=== PATIENT | male | born 1955 | race Hispanic/Latino ===

== ENCOUNTER 2021-10-26 15:42 | Emergency (ER) | payer OTHER ==
[~2021-10-26] VITALS: Ht 167.6 cm; Wt 68.0 kg
[2021-10-26] MEDS ORDERED: ALBUTEROL 0.083% 2.5 MG/3 ML INH IH ONE (16:30)
[2021-10-26] MEDS ORDERED: BUDESONIDE 0.5 MG/2 ML INH IH ONE (16:30)
[2021-10-26] MEDS ORDERED: CEFTRIAXONE 1G VIAL IVP ONE (16:30)
[2021-10-26] MEDS ORDERED: AZITHROMYCIN 250 MG TABLET PO ONE ×2 (16:30→17:35)
[2021-10-26] MEDS ORDERED: IPRATROPIUM/ALBUTEROL SULFATE 3 ML SOLUTION IH ONE (16:30)
[2021-10-26 16:43] LABS: BASOPHILS % (AUTO) 0.4 % (0.0-5.0); EOSINOPHILS % (AUTO) 0.4 % (0.0-8.0); HEMATOCRIT 32.5 % (42-54); LYMPHOCYTES % (AUTO) 21.4 % (21.0-51.0); MEAN CORPUSCULAR HEMOGLOBIN 30.3 pg (27.0-33.0); MEAN CORPUSCULAR HGB CONC 32.3 g/dL (32.0-36.0); MEAN CORPUSCULAR VOLUME 93.7 fL (79-99); MONOCYTES % (AUTO) 7.2 % (3.0-13.0); NEUTROPHILS % (AUTO) 70.4 % (40.0-77.0); PLATELET COUNT (AUTO) 187 K/uL (130-400); RED BLOOD CELL COUNT(AUTO) 3.47 MIL/uL (4.50-6.20); RED CELL DISTRIBUTION WIDTH 16.1 % (11.0-15.5); WHITE BLOOD COUNT (AUTO) 5.1 K/uL (4.8-10.8)
[2021-10-26 17:20] LABS: CREATININE 0.6 mg/dL (0.5-1.5); POTASSIUM 3.6 mmol/L (3.5-5.1)
[2021-10-26 17:30] LABS: ALBUMIN 2.9 g/dL (3.5-5.0); BILIRUBIN,TOTAL 0.3 mg/dL (0.2-1.0); TOTAL PROTEIN, SERUM 6.8 g/dL (6.0-8.3)
[2021-10-26] MEDS ORDERED: CEFTRIAXONE 1G VIAL ONE (17:33)
[2021-10-26] MEDS ORDERED: AZITHROMYCIN 500MG+NS 250ML 250 ML ONE (17:33)
[2021-10-26] MEDS ORDERED: BUDE0.5A8 IH (17:34)
[2021-10-26 18:23] VITALS: BP 134/76
== END 2021-10-26 18:25 | disposition home or self-care (01) ==
LOC: EDH 15:42
DX: J40 Bronchitis, not specified as acute or chronic (principal); Z20.822 Contact with and (suspected) exposure to COVID-19; I10 Essential (primary) hypertension
CPT/HCPCS: 36415; 71045; 80053; 83605; 84484; 85025; 87635; 87804 ×2; 94640 ×3; 96374; 99285; C9803; J0696; J0456

== ENCOUNTER → 2022-05-28 | Outpatient (CLI) | payer OTHER ==
[~2022-05-28] MED LIST: BUDE0.5A8 IH
== END | disposition home or self-care (01) ==
LOC: RAH 08:59
PROVIDERS: ATTEND Student in an Organized Health Care Education/Training Program
DX: C73 Malignant neoplasm of thyroid gland (principal); Z93.1 Gastrostomy status
CPT/HCPCS: 74220

== ENCOUNTER → 2022-06-15 | Outpatient (CLI) | payer OTHER ==
[~2022-06-15] VITALS: Ht 167.6 cm; Wt 76.7 kg
[~2022-06-15] MED LIST changes: +HYDR-4153 PO; +LEVO100C4 PO; +OLME-7 PO; +OMEP20TA20 PO
[2022-06-15 12:27] LABS: BASOPHILS % (AUTO) 0.4 % (0.0-5.0); EOSINOPHILS % (AUTO) 0.4 % (0.0-8.0); LYMPHOCYTES % (AUTO) 22.5 % (21.0-51.0); MEAN CORPUSCULAR HEMOGLOBIN 29.9 pg (27.0-33.0); MEAN CORPUSCULAR HGB CONC 34.5 g/dL (32.0-36.0); MEAN CORPUSCULAR VOLUME 86.6 fL (79-99); MONOCYTES % (AUTO) 8.2 % (3.0-13.0); PLATELET COUNT (AUTO) 152 K/uL (130-400); RED BLOOD CELL COUNT(AUTO) 4.62 MIL/uL (4.50-6.20); RED CELL DISTRIBUTION WIDTH 13.8 % (11.0-15.5); WHITE BLOOD COUNT (AUTO) 5.5 K/uL (4.8-10.8)
[2022-06-15 12:39] VITALS: BP 149/70
[2022-06-15 12:41] LABS: INR 0.93 (0.85-1.15)
[2022-06-15 12:43] LABS: PARTIAL THROMBOPLASTIN TIME 27.9 SEC (26.3-35.5)
[2022-06-15 12:59] LABS: APPEARANCE,URINE CLEAR (CLEAR); BILIRUBIN,URINE NEGATIVE (NEGATIVE); COLOR,URINE LIGHT-YELLOW (YELLOW); GLUCOSE, URINE (UA) NEGATIVE (NEGATIVE); KETONES,URINE NEGATIVE (NEGATIVE); LEUKOCYTE ESTERASE ,URINE NEGATIVE Leu/uL (NEGATIVE); NITRATE,URINE NEGATIVE (NEGATIVE); OCCULT BLOOD,URINE NEGATIVE (NEGATIVE); PH,URINE 6.5 (5.0-8.0); PROTEIN,URINE NEGATIVE (NEGATIVE); UROBILINOGEN,URINE 0.2 mg/dL (0.2-1.0)
[2022-06-15 13:18] LABS: ALBUMIN 3.5 g/dL (3.5-5.0); CREATININE 1.1 mg/dL (0.5-1.5); POTASSIUM 3.9 mmol/L (3.5-5.1); TOTAL PROTEIN, SERUM 7.1 g/dL (6.0-8.3)
== END | disposition home or self-care (01) ==
LOC: EDSTATUS 10:00 → DAH 10:00
PROVIDERS: ATTEND Student in an Organized Health Care Education/Training Program
DX: U07.1 COVID-19 (principal); Z01.812 Encounter for preprocedural laboratory examination; C73 Malignant neoplasm of thyroid gland; Z93.1 Gastrostomy status
CPT/HCPCS: 80053; 85025; 85610; 85730; 87426; 81003; 36415; A6260

== ENCOUNTER 2022-06-22 16:28 | Inpatient (IN) | payer OTHER ==
[~2022-06-22] VITALS: Ht 162.6 cm; Wt 77.1 kg
[~2022-06-22 16:28] MED LIST changes: -BUDE0.5A8 IH
[2022-06-22] MEDS ORDERED: HYDR-4153 PO (18:15)
[2022-06-22 18:16] LABS: BASOPHILS % (AUTO) 0.4 % (0.0-5.0); EOSINOPHILS % (AUTO) 0.8 % (0.0-8.0); HEMATOCRIT 38.7 % (42-54); LYMPHOCYTES % (AUTO) 30.5 % (21.0-51.0); MEAN CORPUSCULAR HEMOGLOBIN 29.4 pg (27.0-33.0); MEAN CORPUSCULAR HGB CONC 34.4 g/dL (32.0-36.0); MEAN CORPUSCULAR VOLUME 85.6 fL (79-99); MONOCYTES % (AUTO) 5.6 % (3.0-13.0); NEUTROPHILS % (AUTO) 62.5 % (40.0-77.0); PLATELET COUNT (AUTO) 206 K/uL (130-400); RED BLOOD CELL COUNT(AUTO) 4.52 MIL/uL (4.50-6.20); RED CELL DISTRIBUTION WIDTH 13.3 % (11.0-15.5); WHITE BLOOD COUNT (AUTO) 4.8 K/uL (4.8-10.8)
[2022-06-22 18:24] LABS: POTASSIUM 3.4 mmol/L (3.5-5.1)
[2022-06-22 18:27] LABS: INR 0.94 (0.85-1.15); PROTHROMBIN TIME 10.3 SEC (9.6-11.6)
[2022-06-22 18:28] LABS: PARTIAL THROMBOPLASTIN TIME 25.9 SEC (26.3-35.5)
[2022-06-22 18:29] LABS: ALBUMIN 3.4 g/dL (3.5-5.0); TOTAL PROTEIN, SERUM 6.6 g/dL (6.0-8.3)
[2022-06-22] MEDS ORDERED: IOHEXOL 350 MG/ML 100ML INFUS..BTL IV ONE (18:52)
[2022-06-22] MEDS ORDERED: NITROGLYCERIN 0.4 MG SL TAB SL PRN (19:30)
[2022-06-22] MEDS ORDERED: DEXTROSE 50%-WATER 50 ML DISP.SYRIN IV PRN (19:30)
[2022-06-22] MEDS ORDERED: ONDANSETRON 4MG INJ IV PRN (19:30)
[2022-06-22] MEDS ORDERED: GLUCAGON 1MG KIT 1 MG ML IM PRN (19:30)
[2022-06-22] MEDS ORDERED: 0.9%NACL 1000ML 1,000 ML IV SCH (19:30)
[2022-06-22 19:45] LABS: HEMOGLOBIN A1C 5.6 % (4.0-6.0)
[2022-06-22] MEDS: INSULIN HUMULIN R 100 UNIT/ML 3ML SQ SCH (19:46)
[2022-06-22] MEDS ORDERED: POTASSIUM CHLORIDE 20 MEQ/100 ML BAG IV SCH (20:00)
[2022-06-22] MEDS: DEXTROSE 5 % AND 0.9 % NACL 1,000 ML IV SCH (20:48)
[2022-06-22] MEDS: FAMOTIDINE 20MG VIAL IV SCH (20:49)
[2022-06-22] MEDS ORDERED: HYDRALAZINE 20MG/ML VIAL IV ONE (22:00)
[2022-06-22] MEDS ORDERED: ALBUTEROL INHALER 90MCG/INH IH PRN (23:00)
[2022-06-23] MEDS: INSULIN HUMULIN R 100 UNIT/ML 3ML SQ SCH ×3 (06:00→18:00)
[2022-06-23 06:56] LABS: BASOPHILS % (AUTO) 0.4 % (0.0-5.0); EOSINOPHILS % (AUTO) 0.4 % (0.0-8.0); LYMPHOCYTES % (AUTO) 15.8 % (21.0-51.0); MEAN CORPUSCULAR HEMOGLOBIN 29.7 pg (27.0-33.0); MEAN CORPUSCULAR HGB CONC 34.3 g/dL (32.0-36.0); MEAN CORPUSCULAR VOLUME 86.4 fL (79-99); MONOCYTES % (AUTO) 8.4 % (3.0-13.0); NEUTROPHILS % (AUTO) 74.6 % (40.0-77.0); PLATELET COUNT (AUTO) 177 K/uL (130-400); RED BLOOD CELL COUNT(AUTO) 4.28 MIL/uL (4.50-6.20); RED CELL DISTRIBUTION WIDTH 13.5 % (11.0-15.5); WHITE BLOOD COUNT (AUTO) 5.3 K/uL (4.8-10.8)
[2022-06-23 07:12] LABS: MAGNESIUM 1.9 mg/dL (1.80-2.40); POTASSIUM 3.6 mmol/L (3.5-5.1)
[2022-06-23] MEDS: FAMOTIDINE 20MG VIAL IV SCH ×2 (08:00→21:09)
[2022-06-23] MEDS: DEXTROSE 5 % AND 0.9 % NACL 1,000 ML IV SCH ×2 (08:00→19:56)
[2022-06-23 11:00] VITALS: BP 166/74
[2022-06-23] MEDS ORDERED: HYDRALAZINE 20MG/ML VIAL IV PRN (14:00)
[2022-06-23 16:00] VITALS: BP 151/80
[2022-06-23] MEDS: HYDRALAZINE 25MG TABLET PO SCH ×2 (16:32→21:09)
[2022-06-23 19:40] VITALS: BP 147/69
[2022-06-23] MEDS: LEVOTHYROXINE 100 MCG TABLET PO SCH (19:55)
[2022-06-23 23:20] VITALS: BP 132/53
[2022-06-24] VITALS (26 sets, daily range): BP systolic 127–181; BP diastolic 51–83
[2022-06-24 05:42] LABS: HEMATOCRIT 35.6 % (42-54); MEAN CORPUSCULAR HEMOGLOBIN 29.7 pg (27.0-33.0); MEAN CORPUSCULAR VOLUME 87.5 fL (79-99); RED BLOOD CELL COUNT(AUTO) 4.07 MIL/uL (4.50-6.20); RED CELL DISTRIBUTION WIDTH 13.4 % (11.0-15.5); WHITE BLOOD COUNT (AUTO) 4.8 K/uL (4.8-10.8)
[2022-06-24] MEDS: INSULIN HUMULIN R 100 UNIT/ML 3ML SQ SCH ×4 (05:54→18:00)
[2022-06-24 06:01] LABS: POTASSIUM 3.4 mmol/L (3.5-5.1)
[2022-06-24] MEDS ORDERED: LIDOCAINE HCL-MPF 1% 2ML VIAL IV PRN (07:30)
[2022-06-24] MEDS ORDERED: MAGNESIUM 2GM PREMIX 50ML 50 ML IV PRN (07:30)
[2022-06-24] MEDS ORDERED: POTASSIUM CHLORIDE 20MEQ/100ML 100 ML IV PRN (07:30)
[2022-06-24] MEDS ORDERED: POTASSIUM CHLORIDE 10% ELIXIR 20 MEQ/15 ML UDCUP PO PRN (07:30)
[2022-06-24] MEDS: OLMESARTAN PO SCH (09:00)
[2022-06-24] MEDS: [UNRECOGNIZED DRUG - OTHER] PO SCH (09:00)
[2022-06-24] MEDS: HYDROCHLOROTHIAZIDE PO SCH (09:00)
[2022-06-24] MEDS: FAMOTIDINE 20MG VIAL IV SCH ×2 (09:53→20:36)
[2022-06-24] MEDS: KCL 20 MEQ ERTAB PO PRN ×2 (09:53→17:01)
[2022-06-24] MEDS: HYDRALAZINE 25MG TABLET PO SCH ×3 (09:53→20:36)
[2022-06-24] MEDS ORDERED: BUPIVACAINE/PF 0.25% 10ML VIAL IJ ONE (09:57)
[2022-06-24] MEDS: DEXTROSE 5 % AND 0.9 % NACL 1,000 ML IV SCH (11:46)
[2022-06-24] MEDS ORDERED: ROCURONIUM 10MG/1ML SYR 10 MG/ML ML ONE (11:49)
[2022-06-24] MEDS ORDERED: MIDAZOLAM HCL 1 MG/ML 2ML VIAL ONE (11:49)
[2022-06-24] MEDS ORDERED: FENTANYL CITRATE PF 50 MCG/1 ML 2ML VIAL ONE (11:49)
[2022-06-24] MEDS ORDERED: SUGAMMADEX SODIUM 200 MG/2 ML VIAL IV ONE (12:51)
[2022-06-25] VITALS: BP 122/59
[2022-06-25 04:00] VITALS: BP 126/65
[2022-06-25 05:38] LABS: BASOPHILS % (AUTO) 0.2 % (0.0-5.0); HEMATOCRIT 35.2 % (42-54); LYMPHOCYTES % (AUTO) 22.1 % (21.0-51.0); MEAN CORPUSCULAR HEMOGLOBIN 29.8 pg (27.0-33.0); MEAN CORPUSCULAR HGB CONC 33.8 g/dL (32.0-36.0); MEAN CORPUSCULAR VOLUME 88.2 fL (79-99); MONOCYTES % (AUTO) 9.8 % (3.0-13.0); NEUTROPHILS % (AUTO) 67.4 % (40.0-77.0); PLATELET COUNT (AUTO) 176 K/uL (130-400); RED BLOOD CELL COUNT(AUTO) 3.99 MIL/uL (4.50-6.20); RED CELL DISTRIBUTION WIDTH 13.6 % (11.0-15.5); WHITE BLOOD COUNT (AUTO) 6.2 K/uL (4.8-10.8)
[2022-06-25] MEDS: INSULIN HUMULIN R 100 UNIT/ML 3ML SQ SCH ×3 (06:00→12:00)
[2022-06-25 06:07] LABS: ALBUMIN 2.8 g/dL (3.5-5.0); MAGNESIUM 2.3 mg/dL (1.80-2.40); POTASSIUM 4.4 mmol/L (3.5-5.1); TOTAL PROTEIN, SERUM 5.9 g/dL (6.0-8.3)
[2022-06-25] MEDS: LEVOTHYROXINE 100 MCG TABLET PO SCH (06:10)
[2022-06-25 08:00] VITALS: BP 143/76
[2022-06-25] MEDS: HYDRALAZINE 25MG TABLET PO SCH (09:00)
[2022-06-25] MEDS: HYDROCHLOROTHIAZIDE PO SCH (09:00)
[2022-06-25] MEDS: OLMESARTAN PO SCH (09:00)
[2022-06-25] MEDS: [UNRECOGNIZED DRUG - OTHER] PO SCH (09:00)
[2022-06-25] MEDS: FAMOTIDINE 20MG VIAL IV SCH (09:01)
[2022-06-25 12:00] VITALS: BP 141/70
== END 2022-06-25 15:45 | disposition home or self-care (01) | DRG 393 ==
LOC: EDH 16:28 → EDHIP 19:03 → 3BH 06-23 11:43
PROVIDERS: ADMIT Hospitalist; ATTEND Hospitalist
PROC: 0D20XUZ Change Feeding Device in Upper Intestinal Tract, External Approach (ICD-10-PCS; principal; 2022-06-24 12:09)
DX: K94.23 Gastrostomy malfunction (principal); U07.1 COVID-19; E87.6 Hypokalemia; R00.1 Bradycardia, unspecified; E03.9 Hypothyroidism, unspecified; E11.9 Type 2 diabetes mellitus without complications; I10 Essential (primary) hypertension; M06.9 Rheumatoid arthritis, unspecified; Y83.3 Surgical operation with formation of external stoma as the cause of abnormal reaction of the patient, or of later complication, without mention of misadventure at the time of the procedure; Y73.2 Prosthetic and other implants, materials and accessory gastroenterology and urology devices associated with adverse incidents; Z82.49 Family history of ischemic heart disease and other diseases of the circulatory system; Z83.3 Family history of diabetes mellitus; Z85.850 Personal history of malignant neoplasm of thyroid; Z87.891 Personal history of nicotine dependence; Z79.899 Other long term (current) drug therapy
CPT/HCPCS: 36415; 71045; 74177; 80048; 80053; 82948; 83036; 83735; 85025; 85027; 85610; 85730; 87635; 93005; G0378; J0360; J2250; J3010; J3480; J3490; J7042; Q9967